=== PATIENT | male | born 1990 | race Caucasian/White ===

== ENCOUNTER 2017-11-05 01:42 | Emergency (ER) | payer SELFPAY ==
[~2017-11-05] VITALS: Ht 185.4 cm; Wt 109.8 kg
[~2017-11-05 01:42] MED LIST: (None)3.5 GM OP; AMOXICILLIN500 MG PO; LORTAB 10-325 M1 TAB PO; NO HOME MEDS
[2017-11-05] MEDS ORDERED: LORTAB 1010 MG PO (02:20)
[2017-11-05] MEDS ORDERED: FAMCICLOVIR500 MG PO (02:20)
[2017-11-05] MEDS ORDERED: ZOVIRAX51 EX (02:20)
[2017-11-05 02:34] VITALS: BP 131/82
== END 2017-11-05 02:34 | disposition home or self-care (01) | DRG 596 ==
LOC: ED 01:42
DX: B02.9 Zoster without complications (principal)

== ENCOUNTER 2017-11-09 20:45 | Emergency (ER) | payer SELFPAY ==
[~2017-11-09] VITALS: Ht 185.4 cm; Wt 109.0 kg
[~2017-11-09 20:45] MED LIST changes: +FAMCICLOVIR500 MG PO; +LORTAB 1010 MG PO; +ZOVIRAX51 EX
[2017-11-09 21:24] LABS: HEMATOCRIT 41.1 % (39.0-50.0); HEMOGLOBIN 13.6 g/dl (14.0-18.0); IMMATURE GRANULOCYTES 0.2 % (0.0-1.0); MEAN CELL VOLUME 90.3 fL CALC (80.0-100.0); MEAN CORPUSCULAR HGB 29.9 pG CALC (26.0-32.0); MEAN CORPUSCULAR HGB CONC 33.1 g/L CALC (32.0-36.0); NEUT# 3.9 thou/uL (1.82-7.42); RED BLOOD COUNT 4.55 mill/uL (4.70-6.10); RED CELL DISTRI WIDTH 12.3 % (11.5-15.5)
[2017-11-09] MEDS ORDERED: ACYCLOVIR400 MG PO (21:24)
[2017-11-09 21:36] LABS: ALBUMIN 4.3 g/dL (3.2-5.0); ALKALINE PHOSPHATASE 69 u/l (38-126); ANION GAP 16 (6-22 (CALC)); BILIRUBIN, TOTAL 0.6 mg/dL (0.0-1.4); BUN 8 mg/dL (9-20); BUN/CREATININE RATIO 9 (12-20 (CALC)); CARBON DIOXIDE 27 mmol/l (22-30); CHLORIDE 104 mmol/l (95-108); CREATININE 0.9 mg/dL (0.7-1.3); GFR > 60 ML/MIN (>=60 (CALC)); GFR FOR AFR.AMER. > 60 ML/MIN (>=60 (CALC)); POTASSIUM 4.3 mmol/l (3.5-5.1); SGOT/AST 65 u/l (17-59); SGPT/ALT 137 u/l (21-72); SODIUM 143 mmol/l (137-146); TOTAL PROTEIN 7.4 g/dL (6.3-8.2)
[2017-11-09 22:01] LABS: URINE BILIRUBIN - DIPSTICK NEGATIVE (NEGATIVE); URINE BLOOD DIPSTICK NEGATIVE (NEGATIVE); URINE COLOR YELLOW; URINE GLUCOSE - DIPSTICK NEGATIVE (NEGATIVE); URINE KETONE NEGATIVE (NEGATIVE); URINE LEUK ESTERASE NEGATIVE (NEGATIVE); URINE NITRITE - DIPSTICK NEGATIVE (Negative); URINE PROTEIN - DIPSTICK NEGATIVE (NEG-TRACE); URINE UROBILINOGEN - DIPSTICK 0.2 E.U./dL (0.2)
[2017-11-09 22:02] LABS: URINE CLARITY CLEAR
[2017-11-09] MEDS ORDERED: TRAMADOL HCL50 MG PO (22:37)
[2017-11-09] MEDS ORDERED: VOLTAREN - GENE75 MG PO (22:37)
[2017-11-09 22:57] VITALS: BP 156/81
== END 2017-11-09 22:57 | disposition home or self-care (01) | DRG 596 ==
LOC: ED 20:45
PROVIDERS: Family Medicine
DX: B02.9 Zoster without complications (principal); M65.849 Other synovitis and tenosynovitis, unspecified hand

== ENCOUNTER 2020-04-30 17:42 | Emergency (ER) | payer SELFPAY ==
[~2020-04-30] VITALS: Ht 185.4 cm; Wt 122.0 kg
[~2020-04-30 17:42] MED LIST changes: +ACYCLOVIR400 MG PO; +TRAMADOL HCL50 MG PO; +VOLTAREN - GENE75 MG PO
[2020-04-30] MEDS ORDERED: CEPHALEXIN500 M1 PO (18:34)
[2020-04-30 18:51] VITALS: BP 149/99
== END 2020-04-30 18:52 | disposition home or self-care (01) | DRG 605 ==
LOC: ED 17:42
PROC: 0HQFXZZ Repair Right Hand Skin, External Approach (ICD-10-PCS; principal; 2020-04-30)
DX: S61.210A Laceration without foreign body of right index finger without damage to nail, initial encounter (principal); W45.8XXA Other foreign body or object entering through skin, initial encounter; Y93.89 Activity, other specified; Y92.009 Unspecified place in unspecified non-institutional (private) residence as the place of occurrence of the external cause

== ENCOUNTER 2020-05-10 15:36 | Emergency (ER) | payer SELFPAY ==
[~2020-05-10] VITALS: Ht 185.4 cm; Wt 122.0 kg
[~2020-05-10 15:36] MED LIST changes: +CEPHALEXIN500 M1 PO
[2020-05-10 15:55] VITALS: BP 156/89
== END 2020-05-10 15:55 | disposition home or self-care (01) | DRG 950 ==
LOC: ED 15:36
DX: S61.210D Laceration without foreign body of right index finger without damage to nail, subsequent encounter (principal); X58.XXXD Exposure to other specified factors, subsequent encounter; T36.96XA Underdosing of unspecified systemic antibiotic, initial encounter; Z91.128 Patient's intentional underdosing of medication regimen for other reason

== ENCOUNTER 2020-08-07 10:06 | Emergency (ER) | payer SELFPAY ==
[~2020-08-07] VITALS: Ht 188 cm; Wt 125.5 kg
[2020-08-07 10:39] LABS: HEMATOCRIT 44.5 % (39.0-50.0); HEMOGLOBIN 14.8 g/dl (14.0-18.0); IMMATURE GRANULOCYTES 0.3 % (0.0-5.0); MEAN CELL VOLUME 88.6 fL CALC (80.0-100.0); MEAN CORPUSCULAR HGB 29.5 pG CALC (26.0-32.0); MEAN CORPUSCULAR HGB CONC 33.3 g/dL CAL (32.0-36.0); NEUT# 3.5 thou/uL (1.82-7.42); RED BLOOD COUNT 5.02 mill/uL (4.70-6.10); RED CELL DISTRI WIDTH 12.2 % (11.5-15.5)
[2020-08-07 10:54] LABS: ALBUMIN 4.6 g/dL (3.2-5.0); ALKALINE PHOSPHATASE 73 u/l (38-126); ANION GAP 13 (6-22 (CALC)); BILIRUBIN, TOTAL 0.8 mg/dL (0.0-1.4); BUN 15 mg/dL (9-20); CARBON DIOXIDE 26 mmol/l (22-30); CHLORIDE 104 mmol/l (95-108); POTASSIUM 4.3 mmol/l (3.5-5.1); SGOT/AST 59 u/l (17-59); SODIUM 139 mmol/l (137-146); TOTAL PROTEIN 7.6 g/dL (6.3-8.2)
[2020-08-07 11:04] LABS: BUN/CREATININE RATIO 15 (12-20 (CALC)); GFR > 60 ML/MIN (>=60 (CALC)); GFR FOR AFR.AMER. > 60 ML/MIN (>=60 (CALC))
[2020-08-07 11:41] LABS: MYOGLOBIN 29 ng/mL (0 - 121)
[2020-08-07] MEDS ORDERED: ROBITUSSIN AC10 ML PO (11:51)
[2020-08-07] MEDS ORDERED: KEFLEX500 M1 PO (11:51)
[2020-08-07 12:30] VITALS: BP 115/66
== END 2020-08-07 12:45 | disposition home or self-care (01) | DRG 153 ==
LOC: ED 10:06
PROVIDERS: Emergency Medicine
DX: J06.9 Acute upper respiratory infection, unspecified (principal); Z20.822 Contact with and (suspected) exposure to COVID-19

== ENCOUNTER 2022-11-15 20:47 | Emergency (ER) | payer BC ==
[2022-11-15] VITALS (8 sets, daily range): BP systolic 110–121; BP diastolic 67–71
[~2022-11-15] VITALS: Ht 188 cm; Wt 111.0 kg
[~2022-11-15 20:47] MED LIST changes: +KEFLEX500 M1 PO; +ROBITUSSIN AC10 ML PO
[2022-11-15 21:32] LABS: BASO% 0.3 % (0-3); EOS% 3.9 % (0-8); HEMATOCRIT 41.1 % (39.0-50.0); HEMOGLOBIN 13.5 g/dl (14.0-18.0); IMMATURE GRANULOCYTES 0.2 % (0.0-5.0); MEAN CELL VOLUME 90.5 fL CALC (80.0-100.0); MEAN CORPUSCULAR HGB 29.7 pG CALC (26.0-32.0); MEAN CORPUSCULAR HGB CONC 32.8 g/dL CAL (32.0-36.0); NEUT% 50.6 % (42-76); RED BLOOD COUNT 4.54 mill/uL (4.70-6.10); RED CELL DISTRI WIDTH 12.4 % (11.5-15.5)
[2022-11-15] MEDS ORDERED: VYVANSE30 M1 PO (21:37)
[2022-11-15 21:42] LABS: ALBUMIN 4.4 g/dL (3.2-5.0); ALKALINE PHOSPHATASE 90 u/l (38-126); ANION GAP 11 (6-22 (CALC)); BUN 13 mg/dL (9-20); BUN/CREATININE RATIO 15 (12-20 (CALC)); CARBON DIOXIDE 26 mmol/l (22-30); CHLORIDE 107 mmol/l (95-108); CREATININE 0.8 mg/dL (0.7-1.3); GFR FOR AFR.AMER. > 60 ML/MIN (>=60 (CALC)); GFR OTHER RACES > 60 ML/MIN (>=60 (CALC)); POTASSIUM 3.8 mmol/l (3.5-5.1); SGOT/AST 27 u/l (17-59); SODIUM 141 mmol/l (137-146); TOTAL PROTEIN 7.3 g/dL (6.3-8.2)
[2022-11-15 21:43] LABS: BILIRUBIN, TOTAL 0.3 mg/dL (0.2-1.3)
[2022-11-16] VITALS (7 sets, daily range): BP systolic 111–132; BP diastolic 64–85
[2022-11-16] MEDS ORDERED: NAPROXEN500 MG PO (01:28)
== END 2022-11-16 01:56 | disposition home or self-care (01) | DRG 313 ==
LOC: ED 20:47
PROVIDERS: Emergency Medicine
DX: R07.89 Other chest pain (principal); Z82.49 Family history of ischemic heart disease and other diseases of the circulatory system